=== PATIENT | male | born 1990 | race African-American/Black ===

== ENCOUNTER 2018-05-02 03:06 | Emergency (ER) | payer SELFPAY ==
[2018-05-02] MEDS ORDERED: Ketorolac Tromethamine 30 MG/ML VIAL ONE (04:40)
[2018-05-02] MEDS ORDERED: Adacel (T-DAP) 0.5 ML VIAL ONE (04:58)
--- NOTE | 2018-05-02 09:38 | RAD ---
RIGHT FOOT 3 VIEWS: HISTORY: Injury to foot with pain. Tarsals appear unremarkable. The metatarsals and phalanges are intact. IMPRESSION: No acute abnormality identified. POS: [facility]
== END 2018-05-02 05:42 | disposition home or self-care (01) ==
LOC: ERS 03:06
DX: S90.111A Contusion of right great toe without damage to nail, initial encounter (principal); Z23 Encounter for immunization; W20.8XXA Other cause of strike by thrown, projected or falling object, initial encounter
CPT/HCPCS: 90471; 90715; 96372; J1885

== ENCOUNTER 2018-06-05 09:24 | Emergency (ER) | payer SELFPAY ==
[2018-06-05] MEDS ORDERED: Lidocaine 1% PF 5 ML VIAL ONE (09:30)
[2018-06-05] MEDS ORDERED: Lidocaine 1% w/Epinephrine 1:100K 20 ML VIAL ONE (09:32)
== END 2018-06-05 10:21 | disposition home or self-care (01) ==
LOC: ERS 09:24
DX: L02.214 Cutaneous abscess of groin (principal); F17.210 Nicotine dependence, cigarettes, uncomplicated
CPT/HCPCS: 10060; J2001

== ENCOUNTER 2018-06-08 09:12 | Emergency (ER) | payer SELFPAY | END 2018-06-08 10:08 | disposition home or self-care (01) | LOC: ERS 09:12 | DX: Z48.817 Encounter for surgical aftercare following surgery on the skin and subcutaneous tissue (principal); F17.210 Nicotine dependence, cigarettes, uncomplicated | CPT/HCPCS: 99283 ==

== ENCOUNTER 2019-03-30 09:58 | Emergency (ER) | payer SELFPAY | END 2019-03-30 10:20 | disposition home or self-care (01) | LOC: ERS 09:58 | DX: T63.2X1A Toxic effect of venom of scorpion, accidental (unintentional), initial encounter (principal); F17.210 Nicotine dependence, cigarettes, uncomplicated | CPT/HCPCS: 99282 ==

== ENCOUNTER 2019-04-25 16:30 | Emergency (ER) | payer SELFPAY ==
[2019-04-25 18:04] LABS: #Basophils 0.1 thou/uL (0.0-0.2); #Eosinphils 0.1 thou/uL (0.0-0.7); #Lymphocytes 2.3 thou/uL (1.20-3.40); #Monocytes 0.9 thou/uL (0.11-0.59); #Neutrophils 7.1 thou/uL (1.40-6.50); %Basophils 0.8 % (0.0-1.0); %Eosinophils 0.8 % (0.0-10.0); %Lymphocytes 21.7 % (21.0-51.0); %Monocytes 8.6 % (0.0-10.0); %Neutrophils 68.1 % (42.0-75.0); Hemoglobin 15.9 g/dL (14.0-18.0); Mean Corpuscular HGB CONC 34.4 g/dL (32.0-36.0); Mean Corpuscular Hemoglobin 30.6 pg (27.0-31.0); Mean Platelet Volume 8.7 fL (7.4-10.4); Platelet Count 195 thou/uL (130-400); Red Blood Cell (RBC) Count 5.19 mill/uL (4.70-6.10); White Blood Cell (WBC) Count 10.5 thou/uL (4.8-10.8)
--- NOTE | 2019-04-25 18:18 | RAD ---
XR Hand Rt 3 View STANDARD: 04/25/2019 5:50 PM CLINICAL INDICATION: Right hand injury COMPARISON: None. TECHNIQUE: 3 views. Laterality: Right hand. FINDINGS: Bones: No acute osseous abnormality. Joints: Joint spaces are preserved.. Soft Tissue: Soft tissues are normal appearing.. IMPRESSION: No acute osseous abnormality. There is healed fracture deformity distal right radius..
[2019-04-25 18:19] LABS: ALT (SGPT) 38 U/L (8-55); AST (SGOT) 35 U/L (5-34); Acetaminophen Less than 6.0 mcg/mL (10.0-30.0); Albumin 5.1 g/dL (3.5-5.0); Alcohol Less than 10 mg/dL (Less than 10); Alkaline Phosphatase 73 U/L (40-150); Anion Gap 17 mmol/L (10-20); BUN (Urea Nitrogen) 13 mg/dL (8.9-20.6); Bilirubin, Total 0.7 mg/dL (0.2-1.2); CK (CPK) 1777 U/L (30-200); Calc. Creatinine Clearance 0 mL/min (70-130); Calcium 10.4 mg/dL (7.8-10.44); Carbon Dioxide 23 mmol/L (22-29); Chloride 102 mmol/L (98-107); Estimated GFR-MDRD 77; Globulin 2.9 g/dL (2.4-3.5); Glucose 77 mg/dL (70-105); Potassium 3.7 mmol/L (3.5-5.1); Salicylate Less than 8.0 mg/dL (15.0-30.0); Sodium 138 mmol/L (136-145)
[2019-04-25 18:30] LABS: Bilirubin Negative (Negative); Blood, Urine Negative (Negative); Clarity Clear (Clear); Glucose, Urine (Dipstick) Normal (Negative); Leukocyte Negative Leu/uL (Negative); Nitrite Negative (Negative); Protein, Urine (Dipstick) 20 mg/dL (Neg-Trace); Urobilinogen Normal mg/dL (Less than 2)
[2019-04-25 18:43] LABS: Amphetamine Detected (NotDetected); Barbiturates Screen Not Detected (NotDetected); Benzodiazepine Screen Not Detected (NotDetected); Cocaine Metabolite Screen Detected (NotDetected); Medtox Control Line Valid? VALID (VALID); Medtox Reader # READER 4; Methadone Not Detected (NotDetected); Methamphetamine Detected (NotDetected); Opiate Screen Not Detected (NotDetected); Oxycodone Screen Not Detected (NotDetected); Phencyclidine (PCP) Not Detected (NotDetected); THC/Cannabinoid Screen Detected (NotDetected); Tricyclic Screen Not Detected (NotDetected)
== END 2019-04-25 22:20 | disposition home or self-care (01) ==
LOC: ERS 16:30
DX: F32.9 Major depressive disorder, single episode, unspecified (principal); F17.210 Nicotine dependence, cigarettes, uncomplicated
CPT/HCPCS: 36415; 80053; 80306; 80307; 81003; 82550; 84443; 85025; 96360; 96361

== ENCOUNTER 2019-07-01 09:46 | Emergency (ER) | payer SELFPAY ==
[2019-07-01] MEDS ORDERED: Acetaminophen 325 MG/10.15 ML UDCUP ONE (10:09)
[2019-07-01] MEDS ORDERED: Acetaminophen 325 MG TAB ONE (10:10)
--- NOTE | 2019-07-01 10:28 | RAD ---
EXAM: 2 views of the right forearm HISTORY: Sudden onset of swelling in the forearm with pain COMPARISON: 06/10/2007 FINDINGS: There is no evidence of acute fracture or dislocation. There is remodeling of the distal ra dius from prior healed fracture. No soft tissue swelling is seen. No degenerative changes are seen in the wrist or elbow. IMPRESSION: No evidence of acute osseous abnormality.
== END 2019-07-01 10:56 | disposition home or self-care (01) ==
LOC: ERS 09:46
DX: M79.631 Pain in right forearm (principal); F17.210 Nicotine dependence, cigarettes, uncomplicated

== ENCOUNTER 2021-09-22 17:53 | Emergency (ER) | payer SELFPAY | END 2021-09-22 20:42 | disposition home or self-care (01) | LOC: ERS 17:53 | DX: S39.012A Strain of muscle, fascia and tendon of lower back, initial encounter (principal); F17.210 Nicotine dependence, cigarettes, uncomplicated; X58.XXXA Exposure to other specified factors, initial encounter | CPT/HCPCS: 99283 ==

== ENCOUNTER 2021-10-14 07:40 | Emergency (ER) | payer SELFPAY ==
[2021-10-14] MEDS ORDERED: Mag-Al 1200 mg/1200 mg/30 ML UDCUP ONE (08:14)
[2021-10-14] MEDS ORDERED: Dicyclomine 20 MG TAB ONE (08:14)
[2021-10-14] MEDS ORDERED: Pantoprazole 40 MG VIAL ONE (08:14)
[2021-10-14] MEDS ORDERED: Lidocaine Viscous Sol 2% 15 ml UD Cup ONE (08:14)
[2021-10-14] MEDS ORDERED: Ondansetron PF 4 MG/2 ML Vial ONE (08:14)
[2021-10-14 08:32] LABS: #Basophils 0.1 thou/uL (0.0-0.2); #Eosinphils 0.6 thou/uL (0.0-0.7); #Lymphocytes 1.8 thou/uL (1.20-3.40); #Monocytes 0.6 thou/uL (0.11-0.59); #Neutrophils 2.6 thou/uL (1.40-6.50); %Eosinophils 10.4 % (0.0-10.0); %Lymphocytes 32.1 % (21.0-51.0); %Monocytes 9.9 % (0.0-10.0); %Neutrophils 45.5 % (42.0-75.0); Hemoglobin 17.2 g/dL (14.0-18.0); Mean Corpuscular HGB CONC 33.8 g/dL (32.0-36.0); Mean Corpuscular Hemoglobin 31.8 pg (27.0-31.0); Mean Corpuscular Volume 94.1 fL (78.0-98.0); Mean Platelet Volume 7.9 fL (7.4-10.4); Platelet Count 199 thou/uL (130-400); RBC Distribution Width 11.8 % (11.5-14.5); Red Blood Cell (RBC) Count 5.43 mill/uL (4.70-6.10); White Blood Cell (WBC) Count 5.7 thou/uL (4.8-10.8)
[2021-10-14 08:53] LABS: ALT (SGPT) 27 U/L (8-55); AST (SGOT) 22 U/L (5-34); Albumin 4.5 g/dL (3.5-5.0); Alkaline Phosphatase 66 U/L (40-110); Anion Gap 12 mmol/L (10-20); BUN (Urea Nitrogen) 14 mg/dL (8.9-20.6); Bilirubin, Total 0.5 mg/dL (0.2-1.2); Calc. Creatinine Clearance 0 mL/min (70-130); Calcium 9.8 mg/dL (7.8-10.44); Carbon Dioxide 24 mmol/L (22-29); Chloride 104 mmol/L (98-107); Globulin 3.4 g/dL (2.4-3.5); Glucose 94 mg/dL (70-105); Lipase 62 U/L (8-78); Potassium 4.5 mmol/L (3.5-5.1); Protein, Total 7.9 g/dL (6.0-8.3); Sodium 135 mmol/L (136-145)
== END 2021-10-14 10:11 | disposition home or self-care (01) ==
LOC: ERS 07:40
DX: R10.13 Epigastric pain (principal); Z87.891 Personal history of nicotine dependence
CPT/HCPCS: 36415; 74177; 80053; 83690; 85025; 96374; 96375; C9113; J2405

== ENCOUNTER 2022-02-16 13:01 | Emergency (ER) | payer OTHER, SELFPAY ==
[~2022-02-16 13:01] MED LIST: Iopamidol-370 76% 500 ML 1 ML ONE
[2022-02-16 13:34] LABS: #Basophils 0.1 thou/uL (0.0-0.2); #Eosinphils 0.4 thou/uL (0.0-0.7); #Neutrophils 4.9 thou/uL (1.40-6.50); %Basophils 1.1 % (0.0-1.0); %Eosinophils 4.3 % (0.0-10.0); %Lymphocytes 24.3 % (21.0-51.0); %Monocytes 11.4 % (0.0-10.0); %Neutrophils 58.8 % (42.0-75.0); Hemoglobin 16.3 g/dL (14.0-18.0); Mean Corpuscular HGB CONC 34.4 g/dL (32.0-36.0); Mean Corpuscular Hemoglobin 32.4 pg (27.0-31.0); Mean Corpuscular Volume 94.1 fL (78.0-98.0); Mean Platelet Volume 7.7 fL (7.4-10.4); Platelet Count 217 thou/uL (130-400); RBC Distribution Width 11.9 % (11.5-14.5); Red Blood Cell (RBC) Count 5.04 mill/uL (4.70-6.10); White Blood Cell (WBC) Count 8.4 thou/uL (4.8-10.8)
[2022-02-16] MEDS ORDERED: Boostrix 0.5 ML (Tdap) VIAL ONE (13:40)
[2022-02-16 13:46] LABS: ALT (SGPT) 64 U/L (8-55); AST (SGOT) 52 U/L (5-34); Albumin 4.5 g/dL (3.5-5.0); Alkaline Phosphatase 84 U/L (40-110); Anion Gap 16 mmol/L (10-20); BUN (Urea Nitrogen) 11 mg/dL (8.9-20.6); Bilirubin, Total 0.5 mg/dL (0.2-1.2); Calc. Creatinine Clearance 0 mL/min (70-130); Calcium 9.3 mg/dL (7.8-10.44); Carbon Dioxide 23 mmol/L (22-29); Chloride 104 mmol/L (98-107); Globulin 3.4 g/dL (2.4-3.5); Glucose 99 mg/dL (70-105); Potassium 4.1 mmol/L (3.5-5.1); Protein, Total 7.9 g/dL (6.0-8.3); Sodium 139 mmol/L (136-145)
[2022-02-16] MEDS ORDERED: Ketorolac Tromethamine 30 MG/ML VIAL ONE (14:13)
[2022-02-16 14:34] LABS: Bilirubin Negative (Negative); Blood, Urine Negative (Negative); Clarity Clear (Clear); Glucose, Urine (Dipstick) Normal (Negative); Ketone, Urine Negative (Negative); Leukocyte Negative Leu/uL (Negative); Nitrite Negative (Negative); Protein, Urine (Dipstick) 20 mg/dL (Neg-Trace); Specific Gravity, Urine 1.037 (1.002-1.036); Urobilinogen Normal mg/dL (Less than 2)
== END 2022-02-16 15:40 | disposition home or self-care (01) ==
LOC: ERS 13:01
DX: S00.83XA Contusion of other part of head, initial encounter (principal); S00.412A Abrasion of left ear, initial encounter; Z87.891 Personal history of nicotine dependence; V49.50XA Passenger injured in collision with unspecified motor vehicles in traffic accident, initial encounter
CPT/HCPCS: 70450; 70486; 71045; 71260; 72125; 74177; 80053; 81003; 85025; 90471; 90715; 94760; 96374; J1885; Q9967

== ENCOUNTER 2022-06-30 11:38 | Emergency (ER) | payer SELFPAY ==
[2022-06-30 13:40] LABS: #Basophils 0.1 thou/uL (0.0-0.2); #Eosinphils 0.7 thou/uL (0.0-0.7); #Lymphocytes 1.6 thou/uL (1.20-3.40); #Monocytes 0.5 thou/uL (0.11-0.59); %Eosinophils 9.6 % (0.0-10.0); %Lymphocytes 23.7 % (21.0-51.0); %Monocytes 7.1 % (0.0-10.0); %Neutrophils 58.6 % (42.0-75.0); Hemoglobin 16.4 g/dL (14.0-18.0); Mean Corpuscular HGB CONC 32.5 g/dL (32.0-36.0); Mean Corpuscular Hemoglobin 30.2 pg (27.0-31.0); Mean Platelet Volume 8.7 fL (7.4-10.4); Platelet Count 201 thou/uL (130-400); RBC Distribution Width 11.8 % (11.5-14.5); Red Blood Cell (RBC) Count 5.43 mill/uL (4.70-6.10); White Blood Cell (WBC) Count 6.8 thou/uL (4.8-10.8)
[2022-06-30 13:57] LABS: ALT (SGPT) 31 U/L (8-55); AST (SGOT) 27 U/L (5-34); Albumin 4.3 g/dL (3.5-5.0); Alkaline Phosphatase 74 U/L (40-110); Anion Gap 10 mmol/L (10-20); BUN (Urea Nitrogen) 9 mg/dL (8.9-20.6); Bilirubin, Total 0.5 mg/dL (0.2-1.2); Calc. Creatinine Clearance 0 mL/min (70-130); Calcium 9.6 mg/dL (7.8-10.44); Carbon Dioxide 28 mmol/L (22-29); Chloride 103 mmol/L (98-107); Estimated GFR 79; Globulin 2.8 g/dL (2.4-3.5); Glucose 99 mg/dL (70-105); Potassium 4.4 mmol/L (3.5-5.1); Protein, Total 7.1 g/dL (6.0-8.3); Sodium 137 mmol/L (136-145)
== END 2022-06-30 14:30 | disposition home or self-care (01) ==
LOC: ERS 11:38
DX: B34.9 Viral infection, unspecified (principal); Z03.818 Encounter for observation for suspected exposure to other biological agents ruled out; Z20.822 Contact with and (suspected) exposure to COVID-19
CPT/HCPCS: 36415; 80053; 85025; 87804; 99283; U0003; U0005

== ENCOUNTER 2022-08-18 08:32 | Emergency (ER) | payer SELFPAY ==
[2022-08-18 08:57] LABS: #Eosinphils 0.7 thou/uL (0.0-0.7); #Lymphocytes 2.7 thou/uL (1.20-3.40); #Monocytes 0.8 thou/uL (0.11-0.59); #Neutrophils 4.5 thou/uL (1.40-6.50); %Basophils 0.5 % (0.0-1.0); %Eosinophils 8.3 % (0.0-10.0); %Lymphocytes 30.5 % (21.0-51.0); %Monocytes 9.4 % (0.0-10.0); %Neutrophils 51.3 % (42.0-75.0); Hemoglobin 16.4 g/dL (14.0-18.0); Mean Corpuscular HGB CONC 32.7 g/dL (32.0-36.0); Mean Corpuscular Hemoglobin 30.2 pg (27.0-31.0); Mean Corpuscular Volume 92.4 fl (78.0-98.0); Mean Platelet Volume 7.7 fL (7.4-10.4); Platelet Count 219 10x3/uL (130-400); RBC Distribution Width 12.1 % (11.5-14.5); Red Blood Cell (RBC) Count 5.41 mill/uL (4.70-6.10); White Blood Cell (WBC) Count 8.7 10x3/uL (4.8-10.8)
[2022-08-18 09:19] LABS: ALT (SGPT) 73 U/L (8-55); AST (SGOT) 69 U/L (5-34); Albumin 4.7 g/dL (3.5-5.0); Alkaline Phosphatase 71 U/L (40-110); Anion Gap 16 mmol/L (10-20); BUN (Urea Nitrogen) 12 mg/dL (8.9-20.6); Bilirubin, Total 0.7 mg/dL (0.2-1.2); Calc. Creatinine Clearance 0 mL/min (70-130); Calcium 9.5 mg/dL (7.8-10.44); Carbon Dioxide 23 mmol/L (22-29); Chloride 103 mmol/L (98-107); Estimated GFR 77; Globulin 2.9 g/dL (2.4-3.5); Glucose 93 mg/dL (70-105); Lipase 66 U/L (8-78); Protein, Total 7.6 g/dL (6.0-8.3); Sodium 138 mmol/L (136-145)
[2022-08-18] MEDS ORDERED: Ondansetron PF 4 MG/2 ML Vial ONE (10:52)
[2022-08-18] MEDS ORDERED: Morphine 4 MG/ML VIAL ONE (10:52)
[2022-08-18] MEDS ORDERED: Iopamidol-370 76% 500 ML 1 ML ONE (11:19)
[2022-08-18] MEDS ORDERED: Dicyclomine 20 MG TAB ONE (12:35)
[2022-08-18] MEDS ORDERED: Lidocaine Viscous Sol 2% 15 ml UD Cup ONE (12:38)
[2022-08-18] MEDS ORDERED: Mag-Al 1200 mg/1200 mg/30 ML UDCUP ONE (12:38)
[2022-08-18 13:07] LABS: SARS-CoV-2 NAA Rapid Test Not Detected (NotDetected)
[2022-08-18 13:33] LABS: Bilirubin Negative (Negative); Blood, Urine Negative (Negative); Clarity Clear (Clear); Glucose, Urine (Dipstick) Normal (Negative); Ketone, Urine Negative (Negative); Leukocyte Negative Leu/uL (Negative); Nitrite Negative (Negative); Protein, Urine (Dipstick) 10 mg/dL (Neg-Trace); Specific Gravity, Urine Greater than 1.060 (1.002-1.036); Urobilinogen Normal mg/dL (Less than 2); pH, Urine 6.5 (5.0-9.0)
== END 2022-08-18 13:56 | disposition home or self-care (01) ==
LOC: ERS 08:32
DX: R10.819 Abdominal tenderness, unspecified site (principal); F17.290 Nicotine dependence, other tobacco product, uncomplicated; Z20.822 Contact with and (suspected) exposure to COVID-19
CPT/HCPCS: 36415; 74177; 80053; 81003; 83690; 85025; 96374; 96375; J2270; J2405; Q9967

== ENCOUNTER 2023-06-08 23:52 | Emergency (ER) | payer SELFPAY ==
[2023-06-09] MEDS ORDERED: cefTRIAXone (ROCEPHIN) 500 MG VIAL ONE (00:06)
[2023-06-09] MEDS ORDERED: Lidocaine 1% MPF 2 ML VIAL ONE (00:06)
[2023-06-09 00:18] LABS: Bacteria/HPF None Seen HPF (None Seen); Bilirubin Negative (Negative); Blood, Urine Negative (Negative); CAUTI Indications for Culture Dysuria,urgency,freq; Clarity Clear (Clear); Glucose, Urine (Dipstick) Normal (Negative); Ketone, Urine Negative (Negative); Leukocyte Negative Leu/uL (Negative); Nitrite Negative (Negative); Protein, Urine (Dipstick) 10 mg/dL (Neg-Trace); RBC/HPF None Seen HPF (0-3); Specific Gravity, Urine 1.026 (1.002-1.036); Squamous Epithelial None Seen HPF (0-3); Urobilinogen Normal mg/dL (Less than 2); WBC/HPF 0-3 HPF (0-3); pH, Urine 6.5 (5.0-9.0)
[2023-06-09 00:26] LABS: Urine Culture Reflex No No
[2023-06-09 13:25] LABS: Chlam.trachomatis by PCR,Urine Not Detected (NotDetected); GC N.gonorrhoeae PCR,UrineVOID Not Detected (NotDetected)
== END 2023-06-09 00:43 | disposition home or self-care (01) ==
LOC: ERS 23:52
DX: Z20.2 Contact with and (suspected) exposure to infections with a predominantly sexual mode of transmission (principal); F17.290 Nicotine dependence, other tobacco product, uncomplicated
CPT/HCPCS: 81001; 87491; 87591; 96372; 99282; J0696